=== PATIENT | female | born 1980 | race Caucasian/White ===

== ENCOUNTER 2016-10-29 10:02 | Outpatient (CLI) | payer OTHER | END 2016-10-29 10:03 | disposition home or self-care (01) | DX: I26.99 Other pulmonary embolism without acute cor pulmonale (principal); I82.429 Acute embolism and thrombosis of unspecified iliac vein ==

== ENCOUNTER 2016-11-05 07:49 | Outpatient (CLI) | payer OTHER | END 2016-11-05 07:50 | disposition home or self-care (01) | DX: I26.99 Other pulmonary embolism without acute cor pulmonale (principal); I82.429 Acute embolism and thrombosis of unspecified iliac vein ==

== ENCOUNTER 2016-11-26 07:17 | Outpatient (CLI) | payer OTHER | END 2016-11-26 07:18 | disposition home or self-care (01) | DX: I26.99 Other pulmonary embolism without acute cor pulmonale (principal); I82.429 Acute embolism and thrombosis of unspecified iliac vein ==

== ENCOUNTER 2016-12-10 11:18 | Outpatient (CLI) | payer OTHER | END 2016-12-10 11:19 | DX: I26.99 Other pulmonary embolism without acute cor pulmonale (principal); I82.429 Acute embolism and thrombosis of unspecified iliac vein ==

== ENCOUNTER 2017-01-16 08:00 | Outpatient (CLI) | payer OTHER | END 2017-01-16 08:01 | disposition home or self-care (01) | LOC: LAB.N 08:00 | PROVIDERS: ATTEND Internal Medicine | DX: I26.99 Other pulmonary embolism without acute cor pulmonale (principal); I82.429 Acute embolism and thrombosis of unspecified iliac vein | CPT/HCPCS: 85610 ==

== ENCOUNTER 2017-01-19 18:51 | Emergency (ER) | payer OTHER | END 2017-01-19 22:20 | disposition home or self-care (01) | DX: R51 Headache (principal); M79.652 Pain in left thigh; R22.42 Localized swelling, mass and lump, left lower limb; R07.9 Chest pain, unspecified; Z86.711 Personal history of pulmonary embolism; Z79.01 Long term (current) use of anticoagulants; D68.51 Activated protein C resistance ==

== ENCOUNTER 2017-01-22 15:10 | Outpatient (CLI) | payer OTHER | END 2017-01-22 15:11 | disposition home or self-care (01) | LOC: LAB.N 15:10 | PROVIDERS: ATTEND Internal Medicine | DX: I26.99 Other pulmonary embolism without acute cor pulmonale (principal); I82.429 Acute embolism and thrombosis of unspecified iliac vein | CPT/HCPCS: 85610 ==

== ENCOUNTER 2017-01-22 16:02 | Emergency (ER) | payer OTHER ==
--- NOTE | 2017-01-22 17:34 | ED Physician Documentation ---
History of Present Illness - Stated complaint Stated Complaint: DIZZY - Chief complaint Chief Complaint: Neuro - History obtained from History obtained from: Patient, Family - History of Present Illness Timing: Today Pain level max: 0 Pain level now: 0 Improved by: lying flat, remaining still. Worsened by: changing position - Additonal information Additional information: near syncopal today, feels lightheaded. Worse changing positions, sitting, standing, lying flat. Review of Systems Constitutional: denies: Fever, Chills Eyes: denies: Decreased vision Ears: denies: Ear pain Respiratory: denies: Cough GI: denies: Abdominal Pain, Nausea, Vomiting, Diarrhea Skin: denies: Rash Musculoskeletal: denies: Neck pain, Back pain Neurologic: denies: Focal weakness, Numbness, Altered mental status, Unresponsive, Headache PD PAST MEDICAL HISTORY - Past Medical History Cardiovascular: None Respiratory: Shortness of breath, Other Neuro: None Endocrine/Autoimmune: None GI: None : None HEENT: None Psych: Anxiety Musculoskeletal: None Derm: None - Past Surgical History Past Surgical 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: 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 surgery) Cardiovascular: Vascular surgery - Present Medications Home Medications: Ambulatory Orders Medication Instructions Recorded Confirmed Warfarin Sodium 5 mg PO DAILY 06/21/16 01/22/17 - Allergies Allergies/Adverse Reactions: Allergies Allergy/AdvReac Type Severity Reaction Status Date / Time No Known Drug Allergies Allergy Verified 01/22/17 16:08 - Social History Does the pt smoke?: No Smoking Status: Never smoker Does the pt drink ETOH?: No Does the pt have substance abuse?: No - Immunizations Immunizations are current?: Yes - POLST Patient has POLST: No PD ED PE NORMAL - Vitals Vital signs reviewed: Yes - General General: Alert and oriented X 3, No acute distress, Well developed/nourished - HEENT HEENT: Atraumatic, PERRL, EOMI, Ears normal, Moist mucous membranes, Pharynx benign - Neck Neck: Supple, no meningeal sign - Cardiac Cardiac: RRR, Strong equal pulses - Respiratory Respiratory: No respiratory distress, Clear bilaterally - Abdomen Abdomen: Soft, Non tender, Non distended - Back Back: No CVA TTP, No spinal TTP - Derm Derm: Warm and dry - Extremities Extremities: No edema, No calf tenderness / cord - Neuro Neuro: Alert and oriented X 3, solar design engineer 2-12 intact, No motor deficit, No sensory deficit, Normal speech, Other (negative hallpike B. No nystagmus. normal cerebellar tests. Normal gait.) - Psych Psych: Normal mood, Normal affect Results - Vitals Vitals: Vital Signs - 24 hr 01/22/17 01/22/17 01/22/17 16:06 18:04 18:37 Temperature 36.5 C Heart Rate 68 66 Heart Rate [ 67 Sitting] Heart Rate [ 65 Standing] Heart Rate [ 72 Supine] Respiratory 18 18 Rate Blood Pressure 139/91 H 113/70 Blood Pressure 107/69 [Sitting] Blood Pressure 119/73 [Standing] Blood Pressure 109/61 [Supine] O2 Saturation 95 100 01/22/17 20:22 Temperature 36.9 C Heart Rate 81 Heart Rate [ Sitting] Heart Rate [ Standing] Heart Rate [ Supine] Respiratory 18 Rate Blood Pressure 117/72 Blood Pressure [Sitting] Blood Pressure [Standing] Blood Pressure [Supine] O2 Saturation 100 Oxygen O2 Source Room air - EKG (time done) 1750 Rate: Rate (enter#) (63) Rhythm: NSR [place]: Normal Intervals: Normal IN QRS: Normal Ischemia: Normal ST segments Computer interpretation: Agree with computer - Labs Labs: Laboratory Tests 01/22/17 01/22/17 01/22/17 16:50 17:45 17:45 WBC 7.0 RBC 4.81 Hgb 13.9 Hct 42.0 MCV 87.3 MCH 29.0 MCHC 33.2 RDW 13.3 Plt Count 249 MPV 9.3 Neut # 4.0 Lymph # 2.3 [place] # 0.5 Eos # 0.2 Baso # 0.1 Absolute Nucleated RBC 0.00 Nucleated RBCs 0.0 Sodium 138 Potassium 3.9 Chloride 105 Carbon Dioxide 27 Anion Gap 6.0 BUN 11 Creatinine 0.6 Estimated GFR (MDRD) 114 Glucose 91 Calcium 9.0 Phosphorus 3.2 Magnesium 1.8 Total Bilirubin 0.6 AST 23 ALT 25 Alkaline Phosphatase 63 Total Protein 6.8 Albumin 4.2 Globulin 2.6 Albumin/Globulin Ratio 1.6 Lipase 33 Urine Color YELLOW Urine Clarity CLEAR Urine pH 6.0 Ur Specific [place] 1.010 Urine Protein NEGATIVE Urine Glucose (UA) NEGATIVE Urine Ketones NEGATIVE Urine Occult Blood TRACE-INTA Urine Nitrite NEGATIVE Urine Bilirubin NEGATIVE Urine Urobilinogen 0.2 (NORMAL) Ur Leukocyte Esterase NEGATIVE Ur Microscopic Review NOT INDICATED Urine Culture Comments NOT INDICATED Urine HCG, Qual NEGATIVE PD MEDICAL DECISION MAKING - ED course Complexity details: reviewed old records, reviewed results, re-evaluated patient , considered differential, d/w patient ED course: Patient is a 36-year-old female who presents to the emergency department with lightheadedness when changing positions. She is very well-appearing, nontoxic. Normal neurological examination. Normal head CT 2 days ago. She had her INR checked just prior to arrival in the emergency department and it was 2.4. No headaches. She still feels intermittently dizzy after IV fluids. Unclear etiology. Does not appear to be related to an acute neurological issue or acute cardiac issue. We will have her follow-up with her doctor for further evaluation and care. Patient counseled regarding signs and symptoms for which I believe and urgent re-evaluation would be necessary. Patient with good understanding of and agreement to plan and is comfortable going home at this time This document was made in part using voice recognition software. While efforts are made to proofread this document, sound alike and grammatical errors may occur. Departure - Departure Disposition: 01 Home, Self Care Clinical Impression: Dizziness Condition: Good Instructions: ED Dizziness UKO Follow-Up: your,doctor in 1 week [Other] Comments: The cause of your symptoms is unclear today. Return if you worsen. You should follow-up with your doctor for further testing, this may include an echocardiogram, ultrasound of your carotid arteries and Holter monitor. Discharge Date/Time: 01/22/17 20:25
[2017-01-22 17:58] LABS: BASOPHILS # (AUTO) 0.1 10^3/uL (0.0-0.1); BASOPHILS % (AUTO) 0.8 %; EOSINOPHILS # (AUTO) 0.2 10^3/uL (0.0-0.7); EOSINOPHILS % (AUTO) 3.4 %; HGB - HEMOGLOBIN 13.9 g/dL (12.0-16.0); LYMPHOCYTES # (AUTO) 2.3 10^3/uL (1.5-3.5); LYMPHOCYTES % (AUTO) 32.5 %; MEAN CORPUSCULAR HGB CONC 33.2 g/dL (32.0-36.0); MEAN CORPUSCULAR VOLUME 87.3 fL (81.0-99.0); MEAN PLATELET VOLUME 9.3 fL (7.9-10.8); MONOCYTES # (AUTO) 0.5 10^3/uL (0.0-1.0); NEUTROPHILS % (AUTO) 56.3 %; RED BLOOD COUNT 4.81 10^6/uL (4.20-5.40); RED CELL DISTRIBUTION WIDTH 13.3 % (12.0-15.0)
[2017-01-22] MEDS: SODIUM CHLORIDE 0.9% 1,000 ML IV ONE ×2 (17:59→18:37)
[2017-01-22 18:11] LABS: ALBUMIN/GLOBULIN RATIO 1.6 (1.0-2.2); BILIRUBIN,TOTAL 0.6 mg/dL (0.2-1.0); CREATININE 0.6 mg/dL (0.4-1.0); MAGNESIUM 1.8 mg/dL (1.7-2.8); PHOSPHORUS 3.2 mg/dL (2.5-4.6); POTASSIUM 3.9 mmol/L (3.5-5.0); TOTAL PROTEIN 6.8 g/dL (6.7-8.2)
[2017-01-22 19:01] LABS: BILIRUBIN,URINE NEGATIVE (NEGATIVE)
[2017-01-22 19:03] LABS: HCG UR QUAL NEGATIVE; UA CHARGE (STRIP ONLY) YES; UR CULTURE IF IND NOT INDICATED
[2017-01-22 20:23] VITALS: BP 117/72
== END 2017-01-22 20:25 | disposition home or self-care (01) ==
LOC: ED 16:02
DX: R42 Dizziness and giddiness (principal)
CPT/HCPCS: 36415; 80053; 81001; 81003; 81025; 83690; 83735; 84100; 85025; 85610; 87086; 93005; 93010; 96360; 99283; 99284

== ENCOUNTER 2017-02-05 10:00 | Outpatient (CLI) | payer OTHER | END 2017-02-05 10:01 | disposition home or self-care (01) | LOC: LAB.N 10:00 | PROVIDERS: ATTEND Internal Medicine | DX: I26.99 Other pulmonary embolism without acute cor pulmonale (principal); I82.429 Acute embolism and thrombosis of unspecified iliac vein | CPT/HCPCS: 85610 ==

== ENCOUNTER 2017-02-07 11:17 | Outpatient (CLI) | payer OTHER | END 2017-02-07 11:18 | disposition home or self-care (01) | LOC: LAB.N 11:17 | PROVIDERS: ATTEND Internal Medicine | DX: I26.99 Other pulmonary embolism without acute cor pulmonale (principal); I82.429 Acute embolism and thrombosis of unspecified iliac vein | CPT/HCPCS: 85610 ==

== ENCOUNTER 2017-02-09 18:45 | Emergency (ER) | payer OTHER ==
[2017-02-09 19:06] VITALS: BP 126/78
--- NOTE | 2017-02-09 19:36 | ED Physician Documentation ---
PD HPI UPPER EXT INJURY - Stated complaint Stated Complaint: RT HAND SWELLING - Chief complaint Chief Complaint: Ext Problem - History obtained from History obtained from: Patient - History of Present Illness Location: Right (36-year-old woman on chronic anticoagulations collided with her son while playing baseball and injured her right hand. No other injury, no head injury. 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: LEEP (Cervical surgery) Cardiovascular: Vascular surgery - Present Medications Home Medications: Ambulatory Orders Medication Instructions Recorded Confirmed Warfarin Sodium 5 mg PO DAILY 06/21/16 02/09/17 - Allergies Allergies/Adverse Reactions: Allergies Allergy/AdvReac Type Severity Reaction Status Date / Time No Known Drug Allergies Allergy Verified 02/09/17 19:06 - Social History Does the pt smoke?: No Smoking Status: Never smoker Does the pt drink ETOH?: No Does the pt have substance abuse?: No - Immunizations Immunizations are current?: Yes - POLST Patient has POLST: No PD ED PE NORMAL - Vitals Vital signs reviewed: Yes - General General: Alert and oriented X 3, No acute distress - Extremities Extremities: Other (Mild tenderness and ecchymosis over the dorsum of the right hand at the level of the mid fourth and fifth metacarpals without limited range of motion.) - Neuro Neuro: Alert and oriented X 3, Normal speech Results - Vitals Vitals: Vital Signs - 24 hr 02/09/17 18:50 Temperature 36.8 C Heart Rate 90 Respiratory 14 Rate Blood Pressure 126/78 O2 Saturation 100 Oxygen O2 Source Room air - Labs Labs: Laboratory Tests 02/09/17 19:34 Whole Blood INR 2.2 H - Rads (name of study) R hand Radiology: EMP read contemporaneously (Normal) Departure - Departure Disposition: 01 Home, Self Care Clinical Impression: Adequate anticoagulation on anticoagulant therapy Contusion of right hand Qualifiers: Encounter type: initial encounter Qualified Code(s): S60.221A - Contusion of right hand, initial encounter Condition: Good Record reviewed to determine appropriate education?: Yes Instructions: ED Contusion Hand Comments: INR today is 2.2 which is fine, Tylenol as needed for pain. Ice it as needed. Do not get while on warfarin. Discharge Date/Time: 02/09/17 20:16
--- NOTE | 2017-02-09 20:16 | XRAY Preliminary Report ---
Exam: XR Hand 3 View RT IMPRESSION: Normal hand radiography. [facility] SITE ID: [id number]
--- NOTE | 2017-02-09 20:19 | XRAY Report ---
EXAM: RIGHT HAND RADIOGRAPHY EXAM DATE: 02/09/2017 08:00 PM. CLINICAL HISTORY: Hand inj. COMPARISON: None. TECHNIQUE: 3 views. FINDINGS: Bones: Normal. No fractures or bone lesions. Joints: Normal. No subluxations. Soft Tissues: Normal. No soft tissue swelling. IMPRESSION: Normal hand radiography. [facility] Referring Provider Line: [phone] SITE ID: [id number]
== END 2017-02-09 20:16 | disposition home or self-care (01) ==
LOC: ED 18:45
DX: S60.221A Contusion of right hand, initial encounter (principal); W51.XXXA Accidental striking against or bumped into by another person, initial encounter; Y93.64 Activity, baseball
CPT/HCPCS: 85610; 99283

== ENCOUNTER 2017-02-25 08:00 | Outpatient (CLI) | payer OTHER | END 2017-02-25 08:01 | disposition home or self-care (01) | LOC: LAB.N 08:00 | PROVIDERS: ATTEND Internal Medicine | DX: I26.99 Other pulmonary embolism without acute cor pulmonale (principal); I82.429 Acute embolism and thrombosis of unspecified iliac vein | CPT/HCPCS: 85610 ==

== ENCOUNTER 2017-03-05 17:16 | Outpatient (CLI) | payer OTHER ==
--- NOTE | 2017-03-06 06:57 | Ultrasound Report ---
EXAM: RIGHT LOWER EXTREMITY VENOUS ULTRASOUND EXAM DATE: 03/05/2017 06:03 PM. CLINICAL HISTORY: History of DVT on the right. COMPARISON: None. TECHNIQUE: Real-time sonographic vascular imaging was performed by the medical claims specialist through the lower extremity utilizing both color-flow and Doppler spectral analysis. Multiple treasury representative static rosalia ges were saved for review. FINDINGS: Common Femoral Vein (CFV): Normal. CFV-GSV Junction: Normal. Profunda Femoral Vein (PFV): Normal. Femoral Vein (FV) Prox: Normal. Femoral Vein (FV) Mid: Normal. Femoral Vein (FV) Dist: Normal. Popliteal Vein: Normal. Posterior Tibial Veins: Normal. Peroneal Veins: Normal. Other: None. IMPRESSION: No evidence for deep venous thrombosis. [facility] Referring Provider Line: [phone] SITE ID: [id number]
== END 2017-03-05 17:17 | disposition home or self-care (01) ==
LOC: DI 17:16
PROVIDERS: ATTEND Internal Medicine Hematology & Oncology
DX: I82.401 Acute embolism and thrombosis of unspecified deep veins of right lower extremity (principal)

== ENCOUNTER 2017-03-17 08:00 | Outpatient (CLI) | payer OTHER | END 2017-03-17 08:01 | disposition home or self-care (01) | DX: I26.99 Other pulmonary embolism without acute cor pulmonale (principal) ==

== ENCOUNTER 2017-04-09 08:00 | Outpatient (CLI) | payer OTHER | END 2017-04-09 08:01 | LOC: LAB.N 08:00 | PROVIDERS: ATTEND Internal Medicine | DX: I26.99 Other pulmonary embolism without acute cor pulmonale (principal); I82.429 Acute embolism and thrombosis of unspecified iliac vein | CPT/HCPCS: 85610 ==

== ENCOUNTER 2017-04-16 14:55 | Outpatient (CLI) | payer OTHER | END 2017-04-16 14:56 | LOC: LAB.N 14:55 | PROVIDERS: ATTEND Internal Medicine | DX: I26.99 Other pulmonary embolism without acute cor pulmonale (principal); I82.429 Acute embolism and thrombosis of unspecified iliac vein | CPT/HCPCS: 85610 ==

== ENCOUNTER 2017-06-12 09:03 | Emergency (ER) | payer OTHER ==
[2017-06-12 10:41] LABS: BASOPHILS # (AUTO) 0.1 10^3/uL (0.0-0.1); BASOPHILS % (AUTO) 1.3 %; EOSINOPHILS # (AUTO) 0.1 10^3/uL (0.0-0.7); EOSINOPHILS % (AUTO) 2.3 %; HGB - HEMOGLOBIN 15.2 g/dL (12.0-16.0); LYMPHOCYTES # (AUTO) 1.7 10^3/uL (1.5-3.5); LYMPHOCYTES % (AUTO) 28.8 %; MEAN CORPUSCULAR HEMOGLOBIN 29.2 pg (27.0-31.0); MEAN CORPUSCULAR HGB CONC 33.7 g/dL (32.0-36.0); MEAN CORPUSCULAR VOLUME 86.4 fL (81.0-99.0); MONOCYTES # (AUTO) 0.4 10^3/uL (0.0-1.0); MONOCYTES % (AUTO) 7.2 %; NEUTROPHILS # (AUTO) 3.6 10^3/uL (1.5-6.6); NEUTROPHILS % (AUTO) 60.4 %; NUCLEATED RED BLOOD CELLS AUTO 0.1 /100WBC; RED CELL DISTRIBUTION WIDTH 13.4 % (12.0-15.0)
[2017-06-12 10:48] LABS: CALCIUM 9.1 mg/dL (8.5-10.3); CREATININE 0.6 mg/dL (0.4-1.0)
[2017-06-12] MEDS ORDERED: IOPAMIDOL-300 100 ML VIAL ONE (11:33)
--- NOTE | 2017-06-12 11:38 | ED Physician Documentation ---
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 now she has she same sx again dec exercise tolerance for few weeks feels weak dizzy and had a near syncopal episode while driving taj son to school today also L eye irritation and blurriness Review of Systems Constitutional: denies: Fever, Chills Cardiac: denies: Chest pain / pressure Respiratory: denies: Dyspnea GI: denies: Abdominal Pain, Nausea, Vomiting PD PAST MEDICAL HISTORY - Past Medical History Cardiovascular: None, Peripheral Vascular Disease, Deep vein thrombosis Respiratory: Shortness of breath, Other Neuro: None Endocrine/Autoimmune: None GI: None : None HEENT: None Psych: Anxiety Musculoskeletal: None Derm: None - Past Surgical History 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: LEEP (Cervical surgery) Cardiovascular: Vascular surgery - Present Medications Home Medications: Ambulatory Orders Medication Instructions Recorded Confirmed No Known Home Medications [No 06/12/17 06/12/17 Known Home Medications] - Allergies Allergies/Adverse Reactions: Allergies Allergy/AdvReac Type Severity Reaction Status Date / Time No Known Drug Allergies Allergy Verified 06/12/17 09:15 - Social History Does the pt smoke?: No Smoking Status: Never smoker Does the pt drink ETOH?: No Does the pt have substance abuse?: No - Immunizations Immunizations are current?: Yes - POLST Patient has POLST: No PD ED PE NORMAL - Vitals Vital signs reviewed: Yes - General General: Alert and oriented X 3 - Cardiac Cardiac: RRR - Respiratory Respiratory: No respiratory distress - Abdomen Abdomen: Soft, Non tender - Derm Derm: Normal color - Extremities Extremities: No edema, No calf tenderness / cord - Neuro Neuro: Alert and oriented X 3 - Psych Psych: Normal mood Results - Vitals Vitals: Vital Signs - 24 hr 06/12/17 06/12/17 06/12/17 09:12 12:21 14:41 Temperature 37.0 C Heart Rate 76 117 H 68 Respiratory 16 16 14 Rate Blood Pressure 129/94 H 107/60 109/69 O2 Saturation 100 98 98 Oxygen O2 Source Room air - Labs Labs: Laboratory Tests 06/12/17 06/12/17 06/12/17 10:31 10:31 10:31 WBC 6.0 RBC 5.20 Hgb 15.2 Hct 45.0 MCV 86.4 MCH 29.2 MCHC 33.7 RDW 13.4 Plt Count 242 MPV 9.0 Neut # 3.6 Lymph # 1.7 [place] # 0.4 Eos # 0.1 Baso # 0.1 Absolute Nucleated RBC 0.00 Nucleated RBC % 0.1 Sodium 136 Potassium 4.0 Chloride 104 Carbon Dioxide 26 Anion Gap 6.0 BUN 9 Creatinine 0.6 Estimated GFR (MDRD) 113 Glucose 95 Calcium 9.1 Serum HCG, Qual NEGATIVE - Rads (name of study) CTPA Radiology: See rad report (no PE) rohith LE dopplers Radiology: See rad report (neg) echo Radiology: See rad report (neg) PD MEDICAL DECISION MAKING - ED course ED course: last time pt had syncope she had a massive PE requiring TPA so took this epsidoe of near syncope very seriously CTPA and dopplers neg for DVT PE EKG and tele NSR throughout long ED stay labs nl no recurrent sx unfortunately etiiology still unclear but given no recurrent sx and reassuring wup feel safe to dc pt with close PMD follow up, rec even monitor, rec no driving until cleared by PMD Departure - Departure Disposition: 01 Home, Self Care Clinical Impression: Near syncope Condition: Good Instructions: ED Near Syncope Unkn Follow-Up: MARK OCHOA [Primary Care Provider] - Comments: All your tests came back fine There is no blood clot in your lungs or legs The EKG and heart monitor showed no rhythm abnormalities The ultrasound of your heart did not show any structural heart abnormalities And your blood work was fine (not anemic, normal electrolytes etc) this is all very reassuring But unfortunately, I do not know why you almost passed out. Given the reassuring work up I think it is OK for you to go home from the ER. But I would like you to follow up with your PMD for a recheck and to discuss getting a wear at home heart monitor. Please do not drive (or climb ladders or swim etc) until you have had a period of time with no further episodes and seen your PMD for follow up and clearance Of course come back to the ER right away for any new or changing or recurrent symptoms Forms: Activity restrictions
[2017-06-12] MEDS ORDERED: IOPAMIDOL-300 100 ML VIAL IVP ONE (11:47)
--- NOTE | 2017-06-12 12:10 | CT Preliminary Report ---
Exam: CT Chest Angio (PE) IMPRESSION: Normal pulmonary CT angiogram. No pulmonary emboli. [facility] SITE ID: [id number]
--- NOTE | 2017-06-12 12:12 | CT Report ---
EXAM: CT ANGIOGRAM CHEST EXAM DATE: 06/12/2017 11:55 AM. CLINICAL HISTORY: Hx PE, off coumadin, recurrent sx. COMPARISON: None. TECHNIQUE: Routine helical imaging was performed through the chest in the pulmonary arterial phase. I V Contrast: 80 cc Isovue 300. Reconstructions: Coronal 3-D MIP reconstructions.Sagittal and coronal. In accordance with CT protocol optimization, one or more of the following dose reduction techniques w ere utilized for this exam: automated exposure control, adjustment of mA and/or KV based on patient s ize, or use of iterative reconstructive technique. FINDINGS: Pulmonary Arteries: Diagnostic quality: Adequate through the segmental arteries. No evidence for acute or chronic pulmona ry emboli. RV/LV is within normal limits. There is no interventricular septal bowing. There is no reflux of cont rast material in the IVC. Lungs/Pleura: No consolidation, nodules, or edema. No effusions or pneumothorax. Mediastinum: Normal. No cardiac enlargement or adenopathy. Thoracic Aorta: Unremarkable. Upper Abdomen: Unremarkable. Other: None. IMPRESSION: Normal pulmonary CT angiogram. No pulmonary emboli. [facility] Referring Provider Line: [phone] SITE ID: [id number]
[2017-06-12 16:51] VITALS: BP 108/66
--- NOTE | 2017-06-12 17:56 | Ultrasound Report ---
BILATERAL LOWER EXTREMITY VENOUS DUPLEX: 06/12/2017 CLINICAL INDICATION: Factor V Leiden deficiency, off Coumadin, near syncope. TECHNIQUE: Real-time sonographic vascular imaging was performed by the electric meter reader through the [facility] lower extremities utilizing both color flow and Doppler spectral analysis. Multiple representat chloé static images were saved for review. FINDINGS: A bilateral lower extremity venous sonogram is performed revealing the common femoral, sup erficial femoral, profunda femoris, and popliteal veins to be adequately visualized without intralumi nal defects. There is normal venous compression, augmentation, phasicity, and spontaneity of venous flow. In the calf, the visualized more cephalad portions of posterior tibial and peroneal veins are grossly compressible, without filling defects. IMPRESSION: NO EVIDENCE OF DEEP VENOUS THROMBOSIS. JOB #: [id number] EXT JOB #:[id number]
== END 2017-06-12 17:07 | disposition home or self-care (01) ==
LOC: ED 09:03
DX: R55 Syncope and collapse (principal); I73.9 Peripheral vascular disease, unspecified; D68.51 Activated protein C resistance; Z86.711 Personal history of pulmonary embolism; Z86.718 Personal history of other venous thrombosis and embolism
CPT/HCPCS: 36415; 71275; 80048; 84703; 85025; 93005; 93306; 93970; 99283; 99284; Q9967

== ENCOUNTER 2018-02-12 11:41 | Emergency (ER) | payer OTHER ==
--- NOTE | 2018-02-12 13:24 | ED Physician Documentation ---
PD HPI LOWER EXT INJURY - Stated complaint Stated Complaint: LEFT FOOT PX - Chief complaint Chief Complaint: Ext Problem - History obtained from History obtained from: Patient - History of Present Illness PD HPI LOW EXT INJURY LOCATION: Left, Foot (Without specific injury she had about 2 weeks of pain in the medial part of the forefoot which was unbearable today while bearing weight. She does run but has decreased her running a lot because of this. Of note she has bunions and is scheduled for surgery on the bunions in early March.) Review of Systems Constitutional: denies: Fever, Chills Throat: reports: Reviewed and negative Cardiac: reports: Reviewed and negative Respiratory: reports: Reviewed and negative PD PAST MEDICAL HISTORY - Past Medical History Past Medical History: Yes Cardiovascular: None, Deep vein thrombosis, Pulmonary embolism, Other Respiratory: Shortness of breath, Other Neuro: Other Endocrine/Autoimmune: None GI: None : None HEENT: None Psych: Anxiety Musculoskeletal: None Derm: None Other Past Medical History: P.E. 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) Cardiovascular: Vascular surgery - Present Medications Home Medications: Ambulatory Orders Medication Instructions Recorded Confirmed Accutane 02/12/18 HYDROcod/ACETAM 5/325 [[place] 5/325] 1 - 2 ea PO Q6H PRN #7 tablet 02/12/18 Meloxicam [Mobic] 7.5 mg PO BIDWM PRN #15 tablet 02/12/18 - Allergies Allergies/Adverse Reactions: Allergies Allergy/AdvReac Type Severity Reaction Status Date / Time No Known Drug Allergies Allergy Verified 09/18/17 10:30 - Social History Does the pt smoke?: No Smoking Status: Never smoker Does the pt drink ETOH?: No Does the pt have substance abuse?: No - Immunizations Immunizations are current?: Yes - POLST Patient has POLST: No PD ED PE NORMAL - Vitals Vital signs reviewed: Yes - General General: Alert and oriented X 3, No acute distress - Extremities Extremities: Other (Left foot: Left foot: She seems to have maximal tenderness over the cuneiform and navicular without deformity. The talus, calcaneus, and lateral structures seem nontender. There is no redness or warmth.) - Neuro Neuro: Alert and oriented X 3, Normal speech Results - Vitals Vitals: Vital Signs - 24 hr 02/12/18 12:05 Temperature 36.2 C L Heart Rate 67 Respiratory 16 Rate Blood Pressure 129/82 H O2 Saturation 100 Oxygen O2 Source Room air - Rads (name of study) l FOOT 3V Radiology: EMP read contemporaneously (NORMAL) PD MEDICAL DECISION MAKING - Sepsis Event Vital Signs: Vital Signs - 24 hr 02/12/18 12:05 Temperature 36.2 C L Heart Rate 67 Respiratory 16 Rate Blood Pressure 129/82 H O2 Saturation 100 Oxygen O2 Source Room air Departure - Departure Disposition: Home, Self Care Clinical Impression: Left foot pain Condition: Good Record reviewed to determine appropriate education?: Yes Prescriptions: HYDROcod/ACETAM 5/325 [[place] 5/325] 1 - 2 ea PO Q6H PRN #7 tablet PRN Reason: Pain Meloxicam [Mobic] 7.5 mg PO BIDWM PRN #15 tablet PRN Reason: Pain Comments: [place], try to limit walking and no running until then. Your blood pressure was elevated today on check into the emergency department. This does not mean that you have hypertension, it is a common phenomenon to come to the emergency department and have elevated blood pressure. I recommend that you see your primary care physician within the week to have it rechecked when you are feeling better.
--- NOTE | 2018-02-12 14:07 | XRAY Preliminary Report ---
Exam: XR FOOT 3 VIEW LT IMPRESSION: 1. Moderate bunion deformity first MTP joint without degenerative changes. 2. Otherwise, unremarkable exam. [facility] SITE ID: [id number]
--- NOTE | 2018-02-12 14:09 | XRAY Report ---
EXAM: left FOOT RADIOGRAPHY EXAM DATE: 02/12/2018 01:35 PM. CLINICAL HISTORY: History of bunions. Medial foot pain with weightbearing, base of the metatarsals fo r 2 weeks. No precipitating injury. COMPARISON: None. TECHNIQUE: 3 views. FINDINGS: Bones: Normal. No fractures or bone lesions. Joints: Moderate bunion deformity first MTP joint without bony reactive changes nor degenerative echols ges of the joint. The rest of the joints are unremarkable. Soft Tissues: Normal. No soft tissue swelling. IMPRESSION: 1. Moderate bunion deformity first MTP joint without degenerative changes. 2. Otherwise, unremarkable exam. [facility] Referring Provider Line: [phone] SITE ID: [id number]
[2018-02-12 14:43] VITALS: BP 123/79
== END 2018-02-12 14:41 | disposition home or self-care (01) ==
LOC: ED 11:41
DX: M79.672 Pain in left foot (principal); R03.0 Elevated blood-pressure reading, without diagnosis of hypertension; Z86.711 Personal history of pulmonary embolism
CPT/HCPCS: 99283

== ENCOUNTER 2018-03-05 16:51 | Outpatient (CLI) | payer OTHER ==
--- NOTE | 2018-03-06 09:31 | MRI Report ---
Procedure Date: 03/05/2018 Accession Number: [id number] / [id number] Procedure: MRI - Foot LT W/O CPT Code: FULL RESULT: EXAM: LEFT MIDFOOT MRI WITHOUT CONTRAST EXAM DATE: 03/05/2018 04:54 PM. CLINICAL HISTORY: PAIN IN LEFT FOOT. COMPARISON: Radiograph 02/12/2018. TECHNIQUE: Multiplanar, multisequence T1-weighted and fluid-sensitive sequences of the midfoot without contrast. Other: None. FINDINGS: Bones and articular surfaces: Hallux valgus and metatarsus primus varus. Mild cartilage loss at the first MTP joint. Small accessory navicular. Musculotendinous structures: Some thickening and increased signal involving the distal tibialis posterior tendon adjacent to the navicular insertion. Remaining flexor and its attendant. Intact. No muscle edema, atrophy or fatty replacement within the [id number]. Ligaments: Visualized portions of the anterior and posterior talofibular, calcaneofibular and deltoid ligaments appear intact. Normal signal within the tarsal sinus. Lisfranc ligament intact. IMPRESSION: 1. Mild tendinosis at the distal tibialis posterior. 2. Hallux valgus with metatarsus primus varus. [facility] MUSCULOSKELETAL RADIOLOGY SECTION
== END 2018-03-05 16:52 | disposition home or self-care (01) ==
LOC: DI 16:51
PROVIDERS: ATTEND Physician Assistant Medical
DX: M67.972 Unspecified disorder of synovium and tendon, left ankle and foot (principal); M20.12 Hallux valgus (acquired), left foot; Q66.21 Congenital metatarsus primus varus

== ENCOUNTER 2018-03-30 18:47 | Emergency (ER) | payer OTHER ==
[2018-03-30 19:12] LABS: BASOPHILS # (AUTO) 0.1 10^3/uL (0.0-0.1); BASOPHILS % (AUTO) 0.9 %; EOSINOPHILS # (AUTO) 0.4 10^3/uL (0.0-0.7); EOSINOPHILS % (AUTO) 4.5 %; HGB - HEMOGLOBIN 13.7 g/dL (12.0-16.0); LYMPHOCYTES # (AUTO) 2.3 10^3/uL (1.5-3.5); LYMPHOCYTES % (AUTO) 28.4 %; MEAN CORPUSCULAR HEMOGLOBIN 29.5 pg (27.0-31.0); MEAN CORPUSCULAR HGB CONC 33.1 g/dL (32.0-36.0); MEAN CORPUSCULAR VOLUME 89.1 fL (81.0-99.0); MEAN PLATELET VOLUME 8.7 fL (7.9-10.8); MONOCYTES # (AUTO) 0.6 10^3/uL (0.0-1.0); NEUTROPHILS # (AUTO) 4.7 10^3/uL (1.5-6.6); NEUTROPHILS % (AUTO) 58.2 %; PLT - PLATELET COUNT 292 10^3/uL (130-450); RED BLOOD COUNT 4.63 10^6/uL (4.20-5.40); RED CELL DISTRIBUTION WIDTH 12.9 % (12.0-15.0)
[2018-03-30 19:24] LABS: ALBUMIN 3.9 g/dL (3.2-5.5); ALBUMIN/GLOBULIN RATIO 1.4 (1.0-2.2); BILIRUBIN,TOTAL 0.8 mg/dL (0.2-1.0); CALCIUM 8.9 mg/dL (8.5-10.3); CREATININE 0.7 mg/dL (0.4-1.0); TOTAL PROTEIN 6.6 g/dL (6.7-8.2)
--- NOTE | 2018-03-30 20:10 | XRAY Report ---
Procedure Date: 03/30/2018 Accession Number: [id number] / [id number] Procedure: XR - Chest 2 View X-Ray CPT Code: 90351 FULL RESULT: EXAM: CHEST RADIOGRAPHY EXAM DATE: 03/30/2018 07:57 PM. CLINICAL HISTORY: Chest pain. COMPARISON: CT angiogram chest 06/12/2017. TECHNIQUE: 2 views. FINDINGS: Lungs/Pleura: No focal opacities evident. No pleural effusion. No pneumothorax. Normal volumes. Mediastinum: Heart and mediastinal contours are unremarkable. Other: None. IMPRESSION: Normal 2-view chest radiography. [facility]
--- NOTE | 2018-03-30 21:44 | ED Physician Documentation ---
History of Present Illness - Stated complaint Stated Complaint: DIZZY/SHAKING/SWEATING - Chief complaint Chief Complaint: Cardiac - History obtained from History obtained from: Patient - History of Present Illness Timing: Enter time (1729), Today - Additonal information Additional information: 38-year-old female with history of factor V Leiden was at work today when she developed acute diaphoresis and shortness of breath. She felt that this episode passed after she got something to eat and she is concerned that this may be a hypoglycemic reaction. She has had this happen to her 1 time previously where she ended up on the floor of her bathroom and was later diagnosed with a pulmonary embolism. She had been placed onto a new control just prior to that. She describes that recently she has decreased her sugar intake and she feels this may be related. She is quite anxious and concerned about the possibility of pulmonary embolism. With her prior pulmonary embolism she visited the emergency department 4 times before diagnosis was made. Review of Systems Constitutional: reports: Sweats. denies: Fever, Chills, Myalgias Eyes: denies: Decreased vision Ears: denies: Ear pain Nose: denies: Congestion Throat: denies: Sore throat Cardiac: denies: Chest pain / pressure, Palpitations Respiratory: reports: Dyspnea. denies: Cough GI: reports: Nausea. 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) Cardiovascular: Vascular surgery - Allergies Allergies/Adverse Reactions: Allergies Allergy/AdvReac Type Severity Reaction Status Date / Time No Known Drug Allergies Allergy Verified 03/30/18 18:56 - Social History Does the pt smoke?: No Smoking Status: Never smoker Does the pt drink ETOH?: No Does the pt have substance abuse?: No - Immunizations Immunizations are current?: Yes - POLST Patient has POLST: No PD ED PE NORMAL - Vitals Vital signs reviewed: Yes (hypertensive mild ) - General General: Alert and oriented X 3, No acute distress, Well developed/nourished - HEENT HEENT: Atraumatic, PERRL, EOMI - Neck Neck: Supple, no meningeal sign, No bony TTP - Cardiac Cardiac: RRR, No murmur - Respiratory Respiratory: No respiratory distress, Clear bilaterally - Abdomen Abdomen: Soft, Non tender - Back Back: No CVA TTP, No spinal TTP - Derm Derm: Normal color, Warm and dry, No rash - Extremities Extremities: No deformity, No edema - Neuro Neuro: Alert and oriented X 3, piler 2-12 intact, No motor deficit, No sensory deficit, Normal speech Eye Opening: Spontaneous Motor: Obeys Commands Verbal: Oriented GCS Score: 15 - Psych Psych: Normal mood, Normal affect Results - Vitals Vitals: Vital Signs - 24 hr 03/30/18 03/30/18 03/30/18 18:53 20:22 21:10 Temperature 36.4 C L 36.4 C L Heart Rate 85 78 Respiratory 20 18 Rate Blood Pressure 139/77 H 106/74 Blood Pressure 103/69 [Left] Blood Pressure 101/78 [Right] O2 Saturation 98 99 03/30/18 22:57 Temperature 36.1 C L Heart Rate 77 Respiratory 18 Rate Blood Pressure 111/77 Blood Pressure [Left] Blood Pressure [Right] O2 Saturation 100 Oxygen O2 Source Room air - EKG (time done) 1916 Rate: Rate (enter#) (86) Rhythm: NSR Ischemia: Normal ST segments Compare to prior EKG: Unchanged from prior EKG (09-18-17) Computer interpretation: Agree with computer - Labs Labs: Laboratory Tests 03/30/18 03/30/18 03/30/18 19:00 19:00 19:00 WBC 8.0 RBC 4.63 Hgb 13.7 Hct 41.2 MCV 89.1 MCH 29.5 MCHC 33.1 RDW 12.9 Plt Count 292 MPV 8.7 Neut # (Auto) 4.7 Lymph # (Auto) 2.3 [place] # (Auto) 0.6 Eos # (Auto) 0.4 Baso # (Auto) 0.1 Absolute Nucleated RBC 0.00 Nucleated RBC % 0.0 Sodium 137 Potassium 3.2 L Chloride 103 Carbon Dioxide 25 Anion Gap 9.0 BUN 9 Creatinine 0.7 Estimated GFR (MDRD) 94 Glucose 119 H POC Whole Bld Glucose Calcium 8.9 Total Bilirubin 0.8 AST 33 ALT 22 Alkaline Phosphatase 54 Troponin I < 0.04 Total Protein 6.6 L Albumin 3.9 Globulin 2.7 Albumin/Globulin Ratio 1.4 Lipase 42 03/30/18 21:41 WBC RBC Hgb Hct MCV MCH MCHC RDW Plt Count MPV Neut # (Auto) Lymph # (Auto) [place] # (Auto) Eos # (Auto) Baso # (Auto) Absolute Nucleated RBC Nucleated RBC % Sodium Potassium Chloride Carbon Dioxide Anion Gap BUN Creatinine Estimated GFR (MDRD) Glucose POC Whole Bld Glucose 100 Calcium Total Bilirubin AST ALT Alkaline Phosphatase Troponin I Total Protein Albumin Globulin Albumin/Globulin Ratio Lipase - Rads (name of study) 2 veiw chest Radiology: Prelim report reviewed (Impression: Normal two-view chest radiography.), EMP read indepedently, See rad report CT angio chest Radiology: Prelim report reviewed (Impression: Normal pulmonary CT angiogram. No pulmonary emboli.), EMP read indepedently, See rad report Procedures - IVC sono (time) 2139 Bedside IVC sono: IVC measures (cm) (1.55), IVC collapsed c insp (cm) (0.89), Euvolemia PD MEDICAL DECISION MAKING - ED course Complexity details: reviewed old records, reviewed results, re-evaluated patient , considered differential, d/w patient ED course: 38-year-old female with a prior history of pulmonary embolism as come to the emergency department today with an episode of diaphoresis and dyspnea that is since resolved. She has prior history of multiple visits to the emergency department for prior pulmonary embolism and has a history of factor V Leiden. She has not been taking any anticoagulation or aspirin. On initial evaluation the patient appears well and likely has had a hypoglycemic reaction. We will do today the pulmonary angiogram. - Sepsis Event Vital Signs: Vital Signs - 24 hr 03/30/18 03/30/18 03/30/18 18:53 20:22 21:10 Temperature 36.4 C L 36.4 C L Heart Rate 85 78 Respiratory 20 18 Rate Blood Pressure 139/77 H 106/74 Blood Pressure 103/69 [Left] Blood Pressure 101/78 [Right] O2 Saturation 98 99 03/30/18 22:57 Temperature 36.1 C L Heart Rate 77 Respiratory 18 Rate Blood Pressure 111/77 Blood Pressure [Left] Blood Pressure [Right] O2 Saturation 100 Oxygen O2 Source Room air Departure - Departure Disposition: Home, Self Care Clinical Impression: Hypoglycemic reaction Condition: Stable Instructions: ED Blood Sugar Low Non Diabetic Follow-Up: CRAIG Gilmore [Provider Group]
[2018-03-30] MEDS: POTASSIUM BICARB 25 MEQ TABLET PO STA (21:52)
[2018-03-30] MEDS ORDERED: IOPAMIDOL-300 100 ML VIAL ONE (22:19)
[2018-03-30] MEDS: IOPAMIDOL-300 100 ML VIAL IVP ONE (22:34)
--- NOTE | 2018-03-30 22:56 | CT Report ---
Procedure Date: 03/30/2018 Accession Number: [id number] / [id number] Procedure: CT - Chest Angio (PE) CPT Code: FULL RESULT: EXAM: CT ANGIOGRAM CHEST EXAM DATE: 03/30/2018 10:37 PM. CLINICAL HISTORY: Dyspnea. COMPARISON: CHEST ANGIO 06/12/2017 11:49 AM. TECHNIQUE: Routine helical imaging was performed through the chest in the pulmonary arterial phase. IV Contrast: ISOVUE 300 80mL. Reconstructions: Coronal 3-D MIP reconstructions.Sagittal and coronal. In accordance with CT protocol optimization, one or more of the following dose reduction techniques were utilized for this exam: automated exposure control, adjustment of mA and/or KV based on patient size, or use of iterative reconstructive technique. FINDINGS: Pulmonary Arteries: Diagnostic quality: Adequate through the segmental arteries. No evidence for acute or chronic pulmonary emboli. RV/LV is within normal limits. There is no interventricular septal bowing. There is no reflux of contrast material in the IVC. Lungs/Pleura: No consolidation, nodules, or edema. No effusions or pneumothorax. Mediastinum: Normal. No cardiac enlargement or adenopathy. Thoracic Aorta: Unremarkable. Upper Abdomen: Unremarkable. Other: None. IMPRESSION: Normal pulmonary CT angiogram. No pulmonary emboli. RADIA
[2018-03-30 22:58] VITALS: BP 111/77
== END 2018-03-30 23:13 | disposition home or self-care (01) ==
LOC: ED 18:47
DX: E16.1 Other hypoglycemia (principal); D68.51 Activated protein C resistance; Z86.711 Personal history of pulmonary embolism
CPT/HCPCS: 36415; 71046; 71275; 80053; 83690; 84484; 85025; 93005; 96374; 99283; A9270; Q9967

== ENCOUNTER 2020-03-06 15:17 | Outpatient (CLI) | payer BC | END 2020-03-06 23:59 | disposition home or self-care (01) | LOC: LAB 15:17 | PROVIDERS: ATTEND Emergency Medicine | DX: J06.9 Acute upper respiratory infection, unspecified (principal); Z20.828 Contact with and (suspected) exposure to other viral communicable diseases | CPT/HCPCS: 81599 ==

== ENCOUNTER 2020-06-28 18:38 | Outpatient (CLI) | payer BC ==
--- NOTE | 2020-06-29 09:09 | Ultrasound Report ---
PROCEDURE: Pelvic w/Transvaginal INDICATIONS: PELVIC PRESSURE, DYSPAREUNIA TECHNIQUE: Real-time scanning was performed of the pelvic organs, with image documentation. Additional endovagi nal scanning was necessary due to incomplete visualization of the adnexal and endometrial structures by transabdominal scanning. COMPARISON: None. FINDINGS: Transabdominal scanning: Limited scanning through the kidneys shows no hydronephrosis. No pathologi c free abdominal or pelvic fluid. Endovaginal scanning: Uterus: Normal size and appearance of the uterus with IUD in appropriate position. The uterine body m easures approximately 3.9 x 5.1 x 7.6 cm. There are dilated periuterine veins noted. Ovaries: Both ovaries are normal in size and appearance. The right ovary measures 1.3 x 2.7 x 3.1 cm . There are a few simple right ovarian follicles present. The left ovary measures 2.4 x 3.0 x 3.1 cm. There is a dominant follicle in the left ovary measuring approximately 1.5 cm. Additional small foll icles are present in the left ovary. No evidence of a solid ovarian or adnexal mass. IMPRESSION: Normal position of IUD. Dilated periuterine veins are noted which can be seen in the setting of pelvic congestion syndrome. Otherwise normal pelvic ultrasound. Reviewed by: Stephen Gee MD on 06/29/2020 9:07 AM PDT Approved by: Stephen Gee MD on 06/29/2020 9:07 AM PDT Station ID: [id number]
== END 2020-06-28 18:39 | disposition home or self-care (01) ==
LOC: DI 18:38
PROVIDERS: ATTEND Physician Assistant Medical
DX: I86.8 Varicose veins of other specified sites (principal); Z97.5 Presence of (intrauterine) contraceptive device
CPT/HCPCS: 76830; 76856

== ENCOUNTER 2020-08-31 07:00 | Outpatient (CLI) | payer BC ==
[2020-09-01 14:43] LABS: TRICHOMONAS VAGINALIS DNA UNRESOLVED (NEGATIVE)
== END 2020-08-31 23:59 | disposition home or self-care (01) ==
LOC: LAB.R 07:00
PROVIDERS: ATTEND Obstetrics & Gynecology
DX: Z11.3 Encounter for screening for infections with a predominantly sexual mode of transmission (principal)
CPT/HCPCS: 87491; 87591; 87661

== ENCOUNTER 2020-09-22 08:00 | Outpatient (CLI) | payer BC ==
[2020-09-22 22:20] LABS: TRICHOMONAS VAGINALIS DNA NEGATIVE (NEGATIVE)
== END 2020-09-22 23:59 ==
LOC: LAB.R 08:00
PROVIDERS: ATTEND Obstetrics & Gynecology
DX: Z11.3 Encounter for screening for infections with a predominantly sexual mode of transmission (principal)
CPT/HCPCS: 87491; 87591; 87661

== ENCOUNTER 2021-04-20 08:00 | Outpatient (CLI) | payer BC ==
[2021-04-20 18:32] LABS: BASOPHILS # (AUTO) 0.1 10^3/uL (0.0-0.1); BASOPHILS % (AUTO) 0.6 %; EOSINOPHILS # (AUTO) 0.6 10^3/uL (0.0-0.7); EOSINOPHILS % (AUTO) 8.1 %; HCT - HEMATOCRIT 46.1 % (37.0-47.0); HGB - HEMOGLOBIN 14.9 g/dL (12.0-16.0); MEAN CORPUSCULAR HEMOGLOBIN 29.8 pg (27.0-31.0); MEAN CORPUSCULAR HGB CONC 32.3 g/dL (32.0-36.0); MEAN CORPUSCULAR VOLUME 92.2 fL (81.0-99.0); MEAN PLATELET VOLUME 11.2 fL (7.9-10.8); MONOCYTES # (AUTO) 0.6 10^3/uL (0.0-1.0); MONOCYTES % (AUTO) 8.1 %; NEUTROPHILS # (AUTO) 4.5 10^3/uL (1.5-6.6); NEUTROPHILS % (AUTO) 56.9 %; PLT - PLATELET COUNT 309 10^3/uL (130-450); RED CELL DISTRIBUTION WIDTH 12.8 % (12.0-15.0); WHITE BLOOD COUNT 7.8 x10^3/uL (4.8-10.8)
[2021-04-20 19:02] LABS: ALBUMIN 4.4 g/dL (3.2-5.5); ALBUMIN/GLOBULIN RATIO 1.5 (1.0-2.2); BILIRUBIN,TOTAL 0.9 mg/dL (0.2-1.0); CALCIUM 9.5 mg/dL (8.5-10.3); CREATININE 0.7 mg/dL (0.4-1.0); TOTAL PROTEIN 7.3 g/dL (6.7-8.2)
== END 2021-04-20 08:01 | disposition home or self-care (01) ==
LOC: LAB.N 08:00
PROVIDERS: ATTEND Nurse Practitioner
DX: R68.2 Dry mouth, unspecified (principal); Z20.822 Contact with and (suspected) exposure to COVID-19
CPT/HCPCS: 36415; 80053; 85025

== ENCOUNTER 2021-07-20 08:00 | Outpatient (CLI) | payer BC ==
[2021-07-20 22:49] LABS: BACTERIAL VAGINOSIS DNA POSITIVE (NEGATIVE); CANDIDA GLABRATA DNA NEGATIVE (NEGATIVE); CANDIDA GROUP DNA POSITIVE (NEGATIVE); CANDIDA KRUSEI DNA NEGATIVE (NEGATIVE); TRICHOMONAS VAGINALIS DNA NEGATIVE (NEGATIVE)
[2021-07-20 23:33] LABS: CHLAMYDIA TRACHOMATIS DNA NEGATIVE (NEGATIVE); NEISSERIA GONORRHOEAE DNA NEGATIVE (NEGATIVE); TRICHOMONAS VAGINALIS DNA NEGATIVE (NEGATIVE)
[2021-07-23 09:31] LABS: HIV AG/AB 4TH GEN NON-REACTIVE (NON-REACTIVE)
[2021-07-24 09:51] LABS: HEPATITIS C ANTIBODY NON-REACTIVE (NON-REACTIVE)
== END 2021-07-20 23:59 | disposition home or self-care (01) ==
LOC: LAB.N 08:00
PROVIDERS: ATTEND Physician Assistant Medical
DX: R30.0 Dysuria (principal); R10.2 Pelvic and perineal pain
CPT/HCPCS: 86592; 86803; 87077; 87086; 87181; 87389; 87491; 87591; 87661; 87801